=== PATIENT | male | born 1975 | race Caucasian/White ===

== ENCOUNTER 2025-05-04 12:54 | Observation (INO) ==
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
[2025-05-04] MEDS: LR 15ML/HR IV SCH (13:13)
[2025-05-04] MEDS: ACETAMINOPHEN 500 MG TAB PO SCH (13:30)
[2025-05-04] MEDS ORDERED: DEXAMETHASONE SOD INJ 4 MG/ML VIAL ONE (15:25)
[2025-05-04] MEDS ORDERED: ONDANSETRON INJ 2 MG/ML 2 ML VIAL ONE (15:25)
[2025-05-04] MEDS ORDERED: PROPOFOL IV EMULSION 10 MG/ML 20 ML VIAL IV ONE (15:25)
[2025-05-04] MEDS ORDERED: MIDAZOLAM HCL 1 MG/ML 2ML VIAL ONE (15:26)
[2025-05-04] MEDS ORDERED: ATROPINE SULFATE 0.1 MG/ML 10ML SYR IV PRN (15:32)
--- NOTE | 2025-05-04 16:10 | History & Physical Bridge Note ---
Date of Service May 04, 2025 History & Physical Bridge Note I have examined the patient, reviewed the History & Physical and in the interval since the performance of the History & Physical I have noted the following changes of clinical significance: no changes noted
[2025-05-04] MEDS ORDERED: DexMEDEtomidine HCL IV 100 MCG/ML VIAL IV ONE (16:23)
[2025-05-04] MEDS: VANCOMYCIN HCL 1000MG/20ML VIAL ONE (17:03)
[2025-05-04] MEDS: GENTAMICIN SULFATE 40 MG/ML 2 ML VIAL ONE ×3 (17:14→17:15)
[2025-05-04] MEDS ORDERED: LORATADINE 10 MG TAB PO PRN (18:31)
--- NOTE | 2025-05-04 18:54 | Anesthesiology Progress Note ---
Date of Service May 04, 2025 Anesthesia Post Procedure Vital Signs Vital Signs: Temp Pulse Pulse Resp BP Pulse Ox O2 Del Method 05/04/25 18:40 71 10 L 140/99 94 Oxymask 05/04/25 18:30 67 16 143/98 H 98 Oxymask 05/04/25 18:22 36.0 C L 74 14 129/94 100 Oxymask 05/04/25 13:02 36.6 C 107 H 20 141/101 H 96 Room Air O2 Flow Rate 05/04/25 18:40 10 05/04/25 18:30 10 05/04/25 18:22 10 05/04/25 13:02 Pain Intensity Left Shoulder: Pain Intensity: 8 Transfer of Care Handoff Completed per policy Notes Mental Status: alert / awake / arousable Patient Amnestic to Procedure: Yes Nausea / Vomiting: adequately controlled Pain: adequately controlled Airway Patency, RR, SpO2: stable & adequate BP & HR: stable & adequate Hydration State: stable & adequate Anesthetic Complications: no major complications apparent
[2025-05-04] MEDS: KETOROLAC 30 MG/ML VIAL IV ONE (19:01)
[2025-05-04] MEDS: HYDROmorphone INJ 2 MG/ML SYR/VIAL IV PRN (19:03)
--- NOTE | 2025-05-04 19:04 | Operative Report ---
PG Post Operative Report Pre & Post Diagnosis Operation Date: 05/04/25 07:00 Pre-Op Diagnosis: Infected left clavicle wound Post-Op Diagnosis: Infected left clavicle wound I identified the patient and participated in the time-out.: Yes Procedure Operation Date: 05/04/25 07:00 Actual Procedures p Left Clavicle Irrigation and Debridement, Insertion of Stimulan Beads(Left) - Victor Manuel Ortiz MD Surgeon Victor Manuel Ortiz MD Business Management Manager None Estimated Blood Loss 100 Findings See Below Punctate sinus tract communicated to the periosteum just medial to the fracture site, indicating deep infection. Suture cerclage, mini fragment plate/screws, and interfragmentary 2.7 millimeter screw was removed. Fracture had evidence of healing, and remained stable after provisional fixation was removed. Stimulan beads placed with vancomycin and gentamicin. Specimens Multiple deep cultures. Soft tissue culture. Hardware sent for culture Anesthesia Type General Complications none Disposition Accompanied Patient To Recovery: Yes Disposition: Recovery Room Indications 49-year-old male approximately 3 weeks out from an ORIF of a clavicle fracture that was highly comminuted presented with persistent draining sinus tract despite antibiotic therapy. I counseled that this may indeed be a deep space infection and we should surgically decompress the area and begin antibiotic therapy. Discussed the risk, benefits, and alternatives to surgical care for his postoperative infection, and he was agreeable to proceed with surgery to treat the infection. Informed consent was documented in clinic and confirmed today. Description of Procedure On the day of surgery, the patient was greeted in the preoperative holding area. The informed consent was reviewed and confirmed by myself and the patient. The patient identified the surgical site and was marked by me. The patient was then turned over to anesthesia. He was taken to the op room and placed supine on the OR table. Anesthesia was induced, and the airway was secured. He was placed in a modified beachchair with the head of the regular bed elevated about 30 degrees. A single blanket roll was placed on the medial border the scapula, and his head was tilted and rotated away. Fluoroscopic visualization was ensured. The field was then closed with impervious drapes. The operative upper extremity and chest was then prepped and draped in usual sterile fashion. Surgical timeout was called by the circulating nurse, and verified by all present. Antibiotics had been held for culture, and equipment was available and functional. Letter incision was made at the previous healing site. Monocryl suture was removed. Deeper dissection was carried out using a Bovie electrocautery. The sinus tract at the medial 1/3-2/3 junction was explored using a hemostat. It tracked all the way to the bone just medial to the fracture site. Plate was involved. There was good apposition of the platysma layer and periosteal closure with the exception of that sinus tract. The entirety of the periosteum and platysma layer was open. Deep swab culture was taken x 2. All absorbable suture was debrided sharply. Fibrinous debris throughout the wound bed was debrided sharply using a knife, Metzenbaum scissors, and gentle curetting. Fibrinous tissue near the sinus tract was sent for culture. The margin of the wound was incised by 1 to 2 mm to remove all areas of scar and the sinus tract itself. The area was thoroughly irrigated. This exposed the plate. The fracture site seem to have evidence of healing and no evidence of resorption. The provisional mini fragment plate and interfragmentary screw were firmly fixed. These implants were removed, as well, while maintaining the longitudinal clavicle plate. The removed surgical implants were sent for culture. Suture cerclage material was removed by incising through it and using a rongeur to remove all of it. Fracture remained stable and had evidence of some healing. With internal fixation removed were possible and the cerclage material removed, we moved onto thorough irrigation. 3 L of normal saline was infused through fracture site and surrounding wound while performing a deep scrub using a sterile toothbrush along all of the exposed hardware of the clavicle plate. Diluted Betadine solution was then obtained. It was then dripped into the wound for a full 2 minutes soaking. A full liter of Betadine solution was run through the wound. With a 2-minute working time. The wound and fracture site was then irrigated again with additional 3 L of normal saline. Stimulan beads have been mixed with vancomycin and gentamicin on the back table. We used the small beads. Once they cured, they were transferred into the surgical site. I pushed them into the interstices of the healing fracture and up under the plate and into the screw holes were possible. I also laid some Stimulan beads along the posterior and anterior aspect of the fracture site, within the sleeve of the periosteum. Remained good soft tissue available for advancement and closure. 0 Vicryl antibiotic-impregnated sutures were then used to reapproximate the pec and trapezial layers to try to gain periosteal coverage. This approximated well. There was good skin apposition with this approximation. Skin closure was achieved using 2-0 nylon stitches in a vertical mattress fashion. There is good eversion of the wound edges. I chose against a drain because of the Stimulan beads. The wound was dressed with sterile Xeroform, plain gauze, ABDs and contained by Ioban. The patient tolerated the procedure well, was extubated in the operating room without complication, and was transferred to the recovery area in stable condition. Disposition: The patient will be admitted for antibiotic parenteral therapy until cultures return to tailor antibiotics. Empiric antibiotics will be started this evening. An infectious disease consult will be requested to assist with antibiotic plan. He should be nonweightbearing to left upper extremity and use a sling for comfort. I attest to the content of the Intraoperative Record and any orders documented therein. Any exceptions are noted below.
[2025-05-04] MEDS: ONDANSETRON INJ 2 MG/ML 2 ML VIAL IV PRN (19:13)
[2025-05-04] MEDS: PROMETHAZINE HCL 6.25 MG in SODIUM CHLORIDE 0.9% 50 ML IV PRN (19:23)
--- NOTE | 2025-05-04 19:36 | XRay Report ---
2 views of the left clavicle are submitted for review. Comparison is made to the prior examination dated 04/18/2025 Findings: Again seen is internal fixation of a fracture of the mid left clavicle with a fixation plate and screws. There is no definite sign of instrumentation failure. There is mild acromioclavicular osteoarthritis. No other osseous abnormality is identified. There are no radiopaque foreign bodies. Impression: 1. Internal fixation of the left clavicle 2. Mild acromioclavicular osteoarthritis Electronically signed by Dylon Martinez 05-04-2025 7:36 PM
[2025-05-04] MEDS ORDERED: VANCOMYCIN CONSULT ACTIVE PRN (19:54)
[2025-05-04] MEDS ORDERED: diphenhydrAMINE 50 MG/ML VIAL IV PRN (19:54)
[2025-05-04] MEDS ORDERED: MAGNESIUM HYDROXIDE SUSP 30 ML UDC PO PRN (19:54)
[2025-05-04] MEDS ORDERED: HYDROmorphone INJ 0.5 MG/0.5 ML SYR IV PRN (19:54)
[2025-05-04] MEDS ORDERED: NALOXONE HCL 0.4 MG/1 ML VIAL/CARP IV PRN (19:54)
[2025-05-04] MEDS ORDERED: METOCLOPRAMIDE HCL INJ 5 MG/ML 2 ML VIAL IV PRN (19:54)
[2025-05-04] MEDS ORDERED: ONDANSETRON INJ 2 MG/ML 2 ML VIAL IV PRN (19:54)
[2025-05-04] MEDS: SODIUM CHLORIDE 0.9% 1,000 ML IV SCH (20:22)
[2025-05-04] MEDS: HYDROmorphone INJ 1 MG/ML SYRINGE IV PRN (20:22)
[2025-05-04] MEDS: PIPERACILLIN/TAZOBACTAM 4.5 GM/100 ML BAG IV ONE (20:42)
[2025-05-04] MEDS: DOCUSATE SODIUM 100 MG CAP PO SCH (22:26)
[2025-05-04] MEDS: ASPIRIN 81 MG ECTAB PO SCH (22:26)
[2025-05-04] MEDS: SENNA 8.6 MG TAB PO SCH (22:26)
[2025-05-04] MEDS: VANCOMYCIN HCL 1,750 MG in SODIUM CHLORIDE 0.9% 500 ML IV ONE (22:36)
[2025-05-04] MEDS: KETOROLAC 30 MG/ML VIAL ONE (23:06)
[2025-05-04] MEDS: PROMETHAZINE HCL INJ 25 MG/ML 1 ML VIAL ONE (23:07)
[2025-05-04] MEDS: SODIUM CHLORIDE 0.9% 50 ML BAG ONE (23:07)
[2025-05-04] MEDS: CYCLOBENZAPRINE HCL 5 MG TAB PO PRN (23:35)
[2025-05-05] MEDS: KETOROLAC 30 MG/ML VIAL IV SCH (01:22)
[2025-05-05] MEDS: PIPERACILLIN/TAZOBACTAM 4.5 GM/100 ML BAG IV SCH (01:49)
[2025-05-05] MEDS: ALUMINUM/MAGNESIUM SUSP 30 ML UDC PO PRN (05:43)
[2025-05-05 05:56] LABS: Hematocrit (blood only) 38.4 % (42.0-52.0); Hemoglobin 13.0 g/dl (14.0-18.0); Immature Granulocytes # (auto) 0.04 K/uL (0.01-0.20); Immature Granulocytes % (auto) 0.3 %; Mean Corpuscular Hemoglobin 31.3 pg (25.0-34.0); Mean Corpuscular Volume 92.3 fL (80.0-100.0); Platelet Count 305 K/uL (130-400); RDW Standard Deviation 40.6 fL (36.4-46.3); Red Blood Count 4.16 M/uL (4.70-6.10); White Blood Count 13.58 K/ul (4.8-10.8)
[2025-05-05] MEDS: VANCOMYCIN HCL 1,500 MG in SODIUM CHLORIDE 0.9% 500 ML IV SCH (06:03)
[2025-05-05 06:28] LABS: Anion Gap 8.0 (3-11); Blood Urea Nitrogen 15.0 mg/dl (6-23); Calcium 9.0 mg/dl (8.6-10.3); Carbon Dioxide 26.0 mmol/L (21-32); Chloride 102.0 mmol/L (98-107); Creatinine Clr Calc Pharmacy 95.0 ml/min; Glucose 142.0 mg/dl (70-99(Fasting)); Potassium 4.4 mmol/L (3.5-5.1); Sodium 136.0 mmol/L (136-145)
[2025-05-05] MEDS: ASCORBIC ACID 500 MG TAB PO SCH (07:55)
[2025-05-05] MEDS: MULTIVITAMIN TAB PO SCH (08:26)
[2025-05-05] MEDS: ACETAMINOPHEN 500 MG TAB PO SCH (08:29)
--- NOTE | 2025-05-05 10:22 | Orthopedic Progress Note ---
Date of Service May 05, 2025 Assessment & Plan (1) Wound, surgical, infected: (2) Fracture of left clavicle: Plan POD1 I&D of left clavicle ORIF site infection. Expected progress - continue broad spectrum abx coverage, awaiting cultures - ID consult requested - continue current pain management - VTE: baby ASA - no plans for return to OR right now - May be activities as tolerated while inpatient. NWBing to LUE. Sling for comfort. ROMAT to elbow, wrist, digits. Gentle AAROM to J Dispo: Awaiting speciation and ID consult recommendations for outpatient abx plan. Expect 2-3 day stay. Subjective Pain and post-anesthesia disorientation reported overnight. 3/10 pain today. Many questions about surgery - all reviewed. Review of Systems All systems reviewed & are unremarkable except as noted in HPI & below. Physical Exam L shoulder: dressing is c/d/i. dnvi Constitutional WD/WN, vitals as above no acute distress and not intoxicated appearing Respiratory normal respiratory effort; no labored breathing Cardiovascular Extremities: normal capillary refill Results & Data Results & Data Laboratory Results . H & H 05/05/25 Range/Units 05:39 Hgb 13.0 L (14.0-18.0) g/dl Hct 38.4 L (42.0-52.0) % Microbiology 05/04/25 17:35 Gram Stain - Final Shoulder,Left 05/04/25 16:50 Gram Stain - Final Shoulder,Left 05/04/25 16:50 Gram Stain - Final Shoulder,Left 05/04/25 16:50 Gram Stain - Final Shoulder,Left Diagnostic Findings Radiographs: encouraging consolitation of fracture. Expected post surgical change w limited hardware removal PG Care Time/CCT Total # of Minutes Spent Total Time Spent with Patient: Total time spent is greater than 50% in coordination of care (as documented) at patient's floor/unit and/or counseling patient: Coding Level of Care Code 47707 Post Operative Follow-Up Diagnoses Wound, surgical, infected T81.49XA Fracture of left clavicle S42.002A
--- NOTE | 2025-05-05 13:47 | Pharmacy Report ---
Pharmacy PK ABX Note - Date of Service May 05, 2025 - Assessment and Plan Assessment 49 year old M with purulent cellulitis around surgical wound with concern for deeper infection. Patient underwent a left clavicle open reduction and internal fixation on 04/06/25. Post procedure, he was evaluated multiple times by both Ortho and at the Emergency Department for concerns of surgical site infection. He was treated as an outpatient with a 10 day course of cephalexin, however, he continued to experience symptoms of infection. Patient presented to [facility] on 05/04 for left clavicle I&D. Cultures obtained during the procedure are pending. Started on empiric pip/tazo + vancomycin IV. ID consulted. Plan Vancomycin * Loading dose: 1750 mg IV x 1 * Maintenance dose: 1500 mg IV every 12 hours - started 05/05 @ 0600, patient received a single dose, then decreased to 1250 mg IV q12h * Regimen is predicted to achieve target AUC/ROMULO of 400-600 mg/L.hr * Random level ordered for: 10 AM Also on pip/tazo 4.5 g IV q8h EI Pharmacy will continue to follow and will adjust dose/frequency as necessary. Thank you. Pharmacy has transitioned to AUC monitoring for vancomycin. AUC/ROMULO is the preferred PK/PD target and is associated with decreased risk of nephrotoxicity compared to traditional trough targets.
[2025-05-05] MEDS ORDERED: Nursing to Pharmacy Communication SCH (18:45)
[2025-05-05] MEDS: POLYETHYLENE (MIRALAX) 17 GM PACK PO PRN (20:42)
[2025-05-05] MEDS: CYCLOBENZAPRINE HCL 10 MG TAB PO PRN (23:14)
[2025-05-06 07:23] LABS: Creatinine Clr Calc Pharmacy 97.0 ml/min
--- NOTE | 2025-05-06 16:01 | Orthopedic Progress Note ---
Date of Service May 06, 2025 Assessment & Plan (1) Wound, surgical, infected: (2) Fracture of left clavicle: Plan POD2 I&D of left clavicle ORIF site infection. Expected progress. Waiting for culture return and outpatient antibiotic plan - continue broad spectrum abx coverage, awaiting cultures - ID consult, hopefully tomorrow - continue current pain management. Wean to oral - VTE: baby ASA - no plans for return to OR right now - May be activities as tolerated while inpatient. NWBing to LUE. Sling for comfort. ROMAT to elbow, wrist, digits. Gentle AAROM to J Dispo: Awaiting speciation and ID consult recommendations for outpatient abx plan. Expect at least through tomorrow. Subjective Had some pain earlier today and used some IV Dilaudid. Pain located up the neck and the soft tissues, as she was dealing with before. Otherwise no change. Review of Systems All systems reviewed & are unremarkable except as noted in HPI & below. Physical Exam Left shoulder: Postoperative dressing was taken down to reveal well-approximated incision with no erythema. 1 area of spotting medially. Redressed. Constitutional WD/WN, vitals as above no acute distress and not intoxicated appearing Respiratory normal respiratory effort; no labored breathing Cardiovascular Extremities: normal capillary refill Results & Data Results & Data Laboratory Results Microbiology 05/04/25 16:50 Gram Stain - Final Shoulder,Left Aerobic and Anaerobic Culture - Preliminary No growth to date. 05/04/25 16:50 Gram Stain - Final Shoulder,Left Aerobic and Anaerobic Culture - Preliminary No growth to date. 05/04/25 16:50 Gram Stain - Final Shoulder,Left Aerobic and Anaerobic Culture - Preliminary No growth to date. 05/04/25 17:35 Gram Stain - Final Shoulder,Left Aerobic and Anaerobic Culture - Preliminary No growth to date. Diagnostic Findings . PG Care Time/CCT Total # of Minutes Spent Total Time Spent with Patient: Total time spent is greater than 50% in coordination of care (as documented) at patient's floor/unit and/or counseling patient: Coding Level of Care Code 02496 Post Operative Follow-Up Diagnoses Wound, surgical, infected T81.49XA Fracture of left clavicle S42.002A
[2025-05-06] MEDS: VANCOMYCIN HCL 1,250 MG in SODIUM CHLORIDE 0.9% 250 ML IV SCH (20:22)
[2025-05-07 06:37] LABS: Hematocrit (blood only) 35.1 % (42.0-52.0); Hemoglobin 12.2 g/dl (14.0-18.0); Immature Granulocytes # (auto) 0.02 K/uL (0.01-0.20); Immature Granulocytes % (auto) 0.2 %; Mean Corpuscular Hemoglobin 32.1 pg (25.0-34.0); Mean Corpuscular Volume 92.4 fL (80.0-100.0); Platelet Count 273 K/uL (130-400); RDW Standard Deviation 40.7 fL (36.4-46.3); Red Blood Count 3.80 M/uL (4.70-6.10); White Blood Count 8.46 K/ul (4.8-10.8)
[2025-05-07 06:58] LABS: Alanine Aminotransferase 15.0 U/L (7-52); Albumin Globulin Ratio 1.1 (0.9-2); Albumin Level 3.4 gm/dl (3.4-5.0); Alkaline Phosphatase 68.0 U/L (34-104); Anion Gap 7.0 (3-11); Bilirubin,Total 0.5 mg/dl (0.2-1.0); Blood Urea Nitrogen 10.0 mg/dl (6-23); Calcium 9.0 mg/dl (8.6-10.3); Carbon Dioxide 31.0 mmol/L (21-32); Chloride 100.0 mmol/L (98-107); Creatinine Clr Calc Pharmacy 93.1 ml/min; Globulin 3.2 gm/dl (2.5-4.0); Glucose 101.0 mg/dl (70-99(Fasting)); Potassium 3.9 mmol/L (3.5-5.1); Sodium 138.0 mmol/L (136-145); Total Protein 6.6 gm/dl (6.0-8.3)
--- NOTE | 2025-05-07 09:12 | Pharmacy Report ---
Pharmacy PK ABX Note - Date of Service May 07, 2025 - Assessment and Plan Assessment 05/07: Day #4 antibiotics The vancomycin level drawn this morning was 11mcg/mL which extrapolates to an AUC in the goal range. He is to remain on current vancomycin maintenance regimen. * Preliminary cultures of the left shoulder x 4 from 05/04 are no growth to date. * leukocytosis has resolved (wbc= 8.46 today), he remains afebrile, and renal function is stable and at baseline. 05/05: 49 year old M with purulent cellulitis around surgical wound with concern for deeper infection. Patient underwent a left clavicle open reduction and internal fixation on 04/06/25. Post procedure, he was evaluated multiple times by both Ortho and at the Emergency Department for concerns of surgical site infection. He was treated as an outpatient with a 10 day course of cephalexin, however, he continued to experience symptoms of infection. Patient presented to OR on 05/04 for left clavicle I&D. Cultures obtained during the procedure are pending. Started on empiric pip/tazo + vancomycin IV. ID consulted. Plan Vancomycin * Vancomycin level drawn this morning was 11 mcg/mL which extrapolates to an AUC of 497mg/L.hr * Continue maintenance dose: 1250 mg IV q12h * Regimen is predicted to achieve target AUC/ROMULO of 400-600 mg/L.hr * Another Random level will be ordered in the next few days or as clinically necessary. Also on pip/tazo 4.5 g IV q8h Pharmacy will continue to follow and will adjust dose/frequency as necessary. Thank you. Pharmacy has transitioned to AUC monitoring for vancomycin. AUC/ROMULO is the preferred PK/PD target and is associated with decreased risk of nephrotoxicity compared to traditional trough targets.
[2025-05-07] MEDS: VANCOMYCIN LEVEL ONE (09:27)
--- NOTE | 2025-05-07 09:38 | Orthopedic Progress Note ---
Date of Service May 07, 2025 Assessment & Plan (1) Wound, surgical, infected: (2) Fracture of left clavicle: Plan * Continue Current Treatment * Disposition: Home * Continue ABX, cultures pending * Formal ID consult pending * Daily treatment: Physical Therapy/ Occupational Therapy per protocol * Weight bearing status: NWB LUE, sling for comfort * ROM as tolerated to elbow, wrist, fingers. * Okay for gentle AAROM to [facility] * Pain control * DVT prophylaxis, ASA * Office/hospital f/u 2 weeks for progress check and staple/suture removal * Discharge planning pending ID consult Subjective .Active Problems: S/p left clavicle SHEA, I&D, Stimulan beads POD 3 49y/o male s/p left clavicle SHEA, I&D, Stimulan beads. Doing well overall, pain managed and improved function. Awaits formal ID consult, OR cultures so far unrevealing. Denies fever/chills, chest pain/SOB, nausea/vomiting. Otherwise no complaints. Review of Systems All systems reviewed & are unremarkable except as noted in HPI & below. Physical Exam . * General: Alert and oriented, no acute distress * Constitutional: well-developed, well-nourished. * Respiratory: Normal respiratory effort, no distress * Gastrointestinal: No tenderness to palpation, no rigidity or guarding. * Skin: No rash or lesion. 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 Mild diffuse tenderness around the clavicle region/surgical site. Otherwise no specific tenderness of the upper arm, elbow, forearm, wrist/hand. ROM shoulder not assessed. AROM elbow, hand, wrist, fingers intact. Sensation intact radial/median/ulnar nerve distributions. Brisk capillary refill. Results & Data Results & Data Laboratory Results . 05/04/25 16:50 Gram Stain - Final Shoulder,Left Aerobic and Anaerobic Culture - Preliminary No growth to date. 05/04/25 16:50 Gram Stain - Final Shoulder,Left Aerobic and Anaerobic Culture - Preliminary No growth to date. 05/04/25 16:50 Gram Stain - Final Shoulder,Left Aerobic and Anaerobic Culture - Preliminary No growth to date. 05/07/25 06:06 WBC 8.46 RBC 3.80 L Hgb 12.2 L Hct 35.1 L MCV 92.4 MCH 32.1 MCHC 34.8 RDW Std Deviation 40.7 RDW Coeff of [place] 11.9 Plt Count 273 MPV 9.3 L Immature Gran % (Auto) 0.2 Neut % (Auto) 64.4 Lymph % (Auto) 19.1 [place] % (Auto) 11.0 Eos % (Auto) 4.6 Baso % (Auto) 0.7 Neut # (Auto) 5.44 Lymph # (Auto) 1.62 [place] # (Auto) 0.93 H Eos # (Auto) 0.39 Baso # (Auto) 0.06 Immature Gran # (Auto) 0.02 ESR 18 Sodium 138 Potassium 3.9 Chloride 100 Carbon Dioxide 31 Anion Gap 7 BUN 10 Creatinine 1.00 Est Cr Clr Drug Dosing 93.1 eGFR 91.12 BUN/Creatinine Ratio 10.0 Glucose 101 H Calcium 9.0 Total Bilirubin 0.5 AST 13 ALT 15 Alkaline Phosphatase 68 C-Reactive Protein 1.49 H Total Protein 6.6 Albumin 3.4 Globulin 3.2 Albumin/Globulin Ratio 1.1 Random Vancomycin 11.0 Diagnostic Findings . PG Care Time/CCT Total # of Minutes Spent Total Time Spent with Patient: Total time spent is greater than 50% in coordination of care (as documented) at patient's floor/unit and/or counseling patient: Coding Level of Care Code 31518 Post Operative Follow-Up Diagnoses Wound, surgical, infected T81.49XA Fracture of left clavicle S42.002A
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
[2025-05-07] MEDS: cefTRIAXone SODIUM 2,000 MG/50 ML BAG IV SCH (17:30)
[2025-05-07] MEDS: DAPTOmycin 500 MG in SYRINGE 0 ML IV SCH (17:30)
[2025-05-08 08:41] LABS: Creatinine Clr Calc Pharmacy 99.0 ml/min
--- NOTE | 2025-05-08 09:06 | Orthopedic Progress Note ---
Date of Service May 08, 2025 Assessment & Plan (1) Wound, surgical, infected: (2) Fracture of left clavicle: Plan * Continue Current Treatment * Disposition: Home * Continue ABX, cultures pending * Appreciate ID recs, discharge plan in place * Daily treatment: Physical Therapy/ Occupational Therapy per protocol * Weight bearing status: NWB LUE, sling for comfort * ROM as tolerated to elbow, wrist, fingers. * Okay for gentle AAROM to [facility] * Pain control * DVT prophylaxis, ASA * Office/hospital f/u 2 weeks for progress check and staple/suture removal * Anticipate discharge today Subjective Active Problems: S/p left clavicle SHEA, I&D, Stimulan beads POD 4 49y/o male s/p left clavicle SHEA, I&D, Stimulan beads. Doing well overall, pain managed and improved function. Appreciate ID recommendations, OR cultures so far unrevealing. Denies fever/chills, chest pain/SOB, nausea/vomiting. Otherwise no complaints. Review of Systems All systems reviewed & are unremarkable except as noted in HPI & below. 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 Mild diffuse tenderness around the clavicle region/surgical site. Otherwise no specific tenderness of the upper arm, elbow, forearm, wrist/hand. ROM shoulder not assessed. AROM elbow, hand, wrist, fingers intact. Sensation intact radial/median/ulnar nerve distributions. Brisk capillary refill. Results & Data Results & Data Laboratory Results . Diagnostic Findings . PG Care Time/CCT Total # of Minutes Spent Total Time Spent with Patient: Total time spent is greater than 50% in coordination of care (as documented) at patient's floor/unit and/or counseling patient: Coding Level of Care Code 37571 Post Operative Follow-Up Diagnoses Wound, surgical, infected T81.49XA Fracture of left clavicle S42.002A
--- NOTE | 2025-05-08 15:57 | XRay Report ---
XR cervical spine 2 or 3V CLINICAL HISTORY: neck pain COMPARISON STUDY: None FINDINGS: There is mild degenerative disc disease at the mid and lower cervical spine. No fracture or subluxation. Plate-screw fixation of the left clavicle is partially visualized. IMPRESSION: No fracture seen. ACT 112: Negative or not required by law. Electronically signed by: Wes Ramirez M.D. 05/08/2025 3:55 PM
[2025-05-08] MEDS: CELECOXIB 100 MG CAP PO SCH (17:57)
[2025-05-09 07:57] VITALS: BP 112/77; PULSE 81; RESP 16; TEMP 98.2; O2SAT 95
--- NOTE | 2025-05-09 09:18 | Orthopedic Progress Note ---
Date of Service May 09, 2025 Assessment & Plan (1) Wound, surgical, infected: (2) Fracture of left clavicle: Plan * Continue Current Treatment * Disposition: Home with home health care * Continue ABX, cultures pending * Appreciate ID recs, discharge plan in place * Will provide one-time dose of Rocephin today in order to get patient home, to resume recommended cefazolin every 8 hours with home care tomorrow * Regarding left scalene pain, discussed symptomatic management versus further imaging. Based on exam do not feel that brachial plexus is involved, defer MRI at this time. Exam significant for tenderness throughout the scalenes, spasm of the left upper trap. Recommend NSAIDs and continue monitoring. * Daily treatment: Physical Therapy/ Occupational Therapy per protocol * Weight bearing status: NWB LUE, sling for comfort * ROM as tolerated to elbow, wrist, fingers. * Okay for gentle AAROM to J * Pain control * DVT prophylaxis, ASA * Office/hospital f/u 2 weeks for progress check and staple/suture removal * Anticipate discharge today Subjective Active Problems: S/p left clavicle SHEA, I&D, Stimulan beads POD 5 49y/o male s/p left clavicle SHEA, I&D, Stimulan beads. Doing well overall, pain managed and improved function. Appreciate ID recommendations, OR cultures so far unrevealing. Denies fever/chills, chest pain/SOB, nausea/vomiting. Notes ongoing left sided neck/upper trap pain that has been persistent since his injury back in March. Denies any radicular pain, numbness/tingling, or weakness of the left upper extremity. Review of Systems All systems reviewed & are unremarkable except as noted in HPI & below. 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 Mild diffuse tenderness around the clavicle region/surgical site. Otherwise no specific tenderness of the upper arm, elbow, forearm, wrist/hand. ROM shoulder not assessed. AROM elbow, hand, wrist, fingers intact. Sensation intact radial/median/ulnar nerve distributions. Brisk capillary refill. * Musculoskeletal (neck): Surgical dressing to left clavicle. Otherwise no obvious deformity or overlying skin changes to the cervical, upper trap, or superior shoulder regions. TTP left scalenes and mild spasm of left upper trap, otherwise no tenderness of the cervical spine, paraspinals, SCM bilaterally. AROM neck flexion and extension with mild pain to the region of the scalene/upper trap. AROM neck lateral flexion bilaterally and rotation bilaterally limited by pain to the left neck region. AROM shoulder flexion, abduction, elbow flexion/extension, wrist flexion/extension, finger flexion/extension/opposition 5/5 bilaterally. AAROM L shoulder flexion and abduction somewhat limited secondary to neck/surgical site pain. Sensation intact radial/median/ulnar nerve distributions. Brisk capillary refill. Results & Data Results & Data Laboratory Results . Diagnostic Findings . Cervical Spine X-Ray 05/08/25 14:04 XR cervical spine 2 or 3V CLINICAL HISTORY: neck pain COMPARISON STUDY: None FINDINGS: There is mild degenerative disc disease at the mid and lower cervical spine. No fracture or subluxation. Plate-screw fixation of the left clavicle is partially visualized. IMPRESSION: No fracture seen. ACT 112: Negative or not required by law. Electronically signed by: Wes Ramirez M.D. 05/08/2025 3:55 PM PG Care Time/CCT Total # of Minutes Spent Total Time Spent with Patient: Total time spent is greater than 50% in coordination of care (as documented) at patient's floor/unit and/or counseling patient: Coding Level of Care Code 30490 Post Operative Follow-Up Diagnoses Wound, surgical, infected T81.49XA Fracture of left clavicle S42.002A
[2025-05-09] MEDS: cefTRIAXone SODIUM 2,000 MG/50 ML BAG IV SCH (11:41)
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
--- NOTE | 2025-05-17 23:04 | Discharge Summary ---
Date of Service May 17, 2025 Admission HPI (Per Admitting) 50 year old male with persistent wound drainage after abx treatment following ORIF of a highly communited clavicle, admitted postoperatively from I&D with hardware retention. Admission Exam (Per Admitting) Constitutional WD/WN, vitals as above no acute distress and not intoxicated appearing Respiratory normal respiratory effort; no labored breathing Cardiovascular Extremities: normal capillary refill Principal Diagnosis Same as "Discharge Diagnosis" noted below under Discharge Instructions. 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 Mild diffuse tenderness around the clavicle region/surgical site. Otherwise no specific tenderness of the upper arm, elbow, forearm, wrist/hand. ROM shoulder not assessed. AROM elbow, hand, wrist, fingers intact. Sensati on intact radial/median/ulnar nerve distributions. Brisk capillary refill. * Musculoskeletal (neck): Surgical dressing to left clavicle. Otherwise no obvious deformity or overlying skin changes to the cervical, upper trap, or superior shoulder regions. TTP left scalenes and mild spasm of left upper trap, otherwise no tenderness of the cervical spine, paraspinals, SCM bilaterally. AROM neck flexion and extension with mild pain to the region of the scalene/upper trap. AROM neck lateral flexion bilaterally and rotation bilaterally limited by pain to the left neck region. AROM shoulder flexion, abduction, elbow flexion/extension, wrist flexion/extension, finger flexion/extension/opposition 5/5 bilaterally. AAROM L shoulder flexion and abduction somewhat limited secondary to neck/surgical site pain. Sensation intact radial/median/ulnar nerve distributions. Brisk capillary refill. Constitutional WD/WN, vitals as above no acute distress and not intoxicated appearing Respiratory normal respiratory effort; no labored breathing Cardiovascular Extremities: normal capillary refill Discharge Data Consultations 05/04/25 18:40 Consult Infectious Diseases Routine Procedures Performed Operation Date: 05/04/25 07:00 Actual Procedures p Left Clavicle Irrigation and Debridement Insertion of Stimulan Beads(Left) - Victor Manuel Ortiz MD Hospital Course (1) Hardware complicating wound infection: (2) Fracture of left clavicle: (3) Wound, surgical, infected: Admitted postoperatively following I&D for parenteral abx therapy, culture monitoring, and development of definitive abx treatment plan. Made progress without complication until cultures revealed organisms for therapy targetting. PG Care Time/CCT Total # of Minutes Spent Total Time Spent with Patient: Total time spent is greater than 50% in coordination of care (as documented) at patient's floor/unit and/or counseling patient: Discharge Plan Discharge Items Patient Disposition: Home - Home Health Services Reason For Visit: Wound Surgical Infected Discharge Diagnosis: s/p L clavicle I&D/SHEA, hardware-associated osteomyelitis of the clavicle Activity: Per Instructions section Non-emergency contact: Surgeon Call non-emergency contact if: your symptoms worsen, your temperature is above 101.5, your wound has increased redness and your wound has increased drainage Follow-up/Referrals: Victor Manuel Ortiz MD [Surgeon] - Gavino Jose DO [Primary Care Provider] - Diet: Regular Addtl Attending Provider Instructions: General Orthopedic Discharge Instructions Activity: NWB LUE, sling for comfort. Ok for ROM as tolerated elbow/wrist/hand, gentle assisted ROM to shoulder Diet: You may resume previous diet. Medications: 1. Narcotic You will likely be sent home from the hospital with a prescription for the narcotic pain medication. Take it as needed. Side effects most commonly include nausea and constipation 2. Antibiotic: You have been prescribed IV antibiotics for treatment of your infection. Take as directed. 2. Resume previous home medications unless otherwise instructed Dressing Care: If there is a soft dressing in place then leave the dressing intact for 5 days. On the you may remove the dressing and leave the stitches open to air or cover them with band-aids. Keep the incision clean and dry If there is a hard splint then leave it in place until your follow-up visit in 2 weeks Showering: If you have a soft dressing you may shower right after the surgery but do not get the dressing wet. After the dressing is removed on the 5th day then you can get the stitches wet in the shower, but do not soak or scrub them. Let the soapy shower water run over the stitches and pat them dry. If you have a hard splint, cover it in a plastic bag and keep it dry. Do not remove it until the follow up appointment. Things To Watch For: 1. Drainage from the incision site that occurs more than one week after your surgery. 2. Increased redness at the incision site. 3. Fever above 102 degrees Fahrenheit. 4. Unusual chest pain or shortness of breath. 5. Call [facility] at with any of the above problems. Follow-Up Visit: Please make arrangements to follow-up with Dr. Ortiz team approximately 2 weeks after your day of surgery for progress check and staple/suture removal. If you have any questions call Pending Studies at Discharge: Yes (Labs per ID recommendations) Stand-Alone Forms: My [facility], Smoking Cessation Medications and DC Order Prescriptions: New oxycodone 5 mg tablet 5 mg PO Q6H PRN (Reason: pain) Qty: 30 0RF cefazolin 2 gram recon soln 2 g IV Q8H celecoxib [Celebrex] 200 mg capsule 200 mg PO BID Qty: 28 0RF Rx Instructions: Take 1 pill twice a day for 2 weeks after surgery Continued loratadine 10 mg Tablet 10 mg PO DAILY PRN (Reason: Allergies) acetaminophen [Tylenol Extra Strength] 500 mg Tablet 1,000 mg PO DAILY PRN (Reason: Pain) cyclobenzaprine 5 mg tablet 5 mg PO UD PRN (Reason: muscle spasm) Patient Comments: no use for awhile polyethylene glycol 3350 17 gram Powder In Packet 17 g PO UD PRN (Reason: Constipation) No Action rifampin 300 mg capsule 300 mg PO Q12H 42 Days Qty: 84 0RF Discharge Orders: Discharge Order (Routine); Ordered 05/09/25 Ordered By: Victor Manuel Hamilton/Other Patient Handouts: PICC, Caring for Your PICC Dc Admission Data Admit Date/Time: 05/04/25 18:39 Attending Provider: Victor Manuel Ortiz Admit Provider: Victor Manuel Ortiz Primary Care Provider: Gavino Jose Other Providers: [facility],Home Healthcare; Annamaria Juarez Other Interventions: Discharge Summary Assessment (RN) Last Done: 05/09/25 12:32
== END 2025-05-09 13:28 | disposition home health service (06) | DRG 857 ==
LOC: ASU 12:54 → INTOOBSV 18:39 → 3N 18:39